=== PATIENT | female | born 1990 | race Caucasian/White ===

== ENCOUNTER → 2017-09-18 | Outpatient (CLI) | payer OTHER ==
[~2017-09-18] MED LIST: PRISTIQ50 MG PO
== END ==
LOC: M.RAD 15:56
DX: M41.85 Other forms of scoliosis, thoracolumbar region (principal)

== ENCOUNTER → 2018-01-02 | Outpatient (CLI) | payer OTHER | LOC: M.CT 11:30 | DX: N28.1 Cyst of kidney, acquired (principal); M41.85 Other forms of scoliosis, thoracolumbar region ==